=== PATIENT | female | born 1995 | race Caucasian/White ===

== ENCOUNTER 2018-07-09 00:35 | Emergency (ER) | END 2018-07-09 04:00 | disposition left against medical advice (07) | LOC: ER 00:35 | DX: R56.9 Unspecified convulsions (principal); Z53.21 Procedure and treatment not carried out due to patient leaving prior to being seen by health care provider ==

== ENCOUNTER 2019-05-24 19:48 | Emergency (ER) | payer OTHER ==
--- NOTE | 2019-05-24 21:22 | RADIOLOGY REPORT (SQ) ---
EXAM DESCRIPTION: Left wrist [facility]Lex: XR WRIST 3 OR MORE VIEWS Views: 3 CLINICAL HISTORY: 23 years Female, bone tenderness, plate in wrist COMPARISON: None. FINDINGS: Negative for acute fracture, dislocation, or radiopaque foreign body. There is an internal fixation plate along the anterior aspect of the distal radius. No hardware fracture or loosening. No lytic bone changes or acute periosteal reaction. IMPRESSION: 1. No acute findings.
[2019-05-24] MEDS ORDERED: HYDROCODONE/ACETAMINOPHEN 5-325 MG (6 TAB/ER DISP) PO PRN (22:47)
--- NOTE | 2019-05-24 22:52 | ER Document Report ---
ED General - General Chief Complaint: Wrist Pain Stated Complaint: LEFT WRIST PAIN Time Seen by Provider: 05/24/19 22:35 Primary Care Provider: THUY JESUS MD [Primary Care Provider] - Follow up as needed Notes: Patient has pain into her left wrist. She had surgery a year ago in April. Patient said surgery was done in [facility]. Patient was moving furniture and now has had increasing pain going into her hand and down her arm. She denies any new injuries other than the recent lifting of furniture. Patient says that she has had chronic issues with her wrist. She says she has chronic issues with pain with movement and weakness into her hands and wrist. She has chronic issues with intermittent numbness. She has had nerve conduction studies. She had physical therapy but says she does not like physical therapy exam because of increasing pain and feels it is hard to do physical therapy when it causes pain to do so. She has seen a neurologist. She says no I can give her an answer as to why she continues to have these problems. TRAVEL OUTSIDE OF THE [place] IN LAST 30 DAYS: No - Related Data Allergies/Adverse Reactions: No Known Allergies Allergy (Unverified 07/09/18 00:40) Past Medical History - Social History Smoking Status: Never Smoker Chew tobacco use (# tins/day): No Frequency of alcohol use: None Drug Abuse: None Family History: Reviewed & Not Pertinent Patient has suicidal ideation: No Patient has homicidal ideation: No Renal/ Medical History: Denies: Hx Peritoneal Dialysis Past Surgical History: Reports: Hx Orthopedic Surgery - Bilat Wrist Physical Exam - Vital signs Vitals: Temp Pulse Resp BP 98.2 F 84 16 132/67 H 05/24/19 20:05 05/24/19 20:05 05/24/19 20:05 05/24/19 20:05 Course - Re-evaluation Re-evalutation: 05/24/19 22:57 Patient's wrist x-ray is normal. Exam of her wrist does not have any concerning findings other than some pain over the wrist to palpation. Wrist is not abnormally swollen. She is able to oppose her thumb with all fingers. She is able to abduct and abduct all fingers. She is able to flex and extend all fingers of the hand. She is able to feel me touch all fingers in the hand. She has no obvious neuro deficit going into the hand. She has good capillary refill and good pulses. She is frustrated with the fact that she has had these chronic problems with a risk for some time. I informed her that currently her x-ray does not show any fractures. I informed her that she could have a strain in the wrist. I informed her that I do not know why she has had these chronic problems. I talked her about the need to continue with physical therapy and occupational therapy to help strengthen the wrist and hand. I did ask about nerve conduction studies which she said she is already had done and were normal. Informed her that she needs to continue follow-up with her orthopedist as well as neurologist in regards to further work-up and continue treatment for her chronic problems with her wrists. I encouraged her to avoid any heavy lifting for the next several days until she is seen by . I encouraged her to wear a wrist splint to help give support to her wrist. Patient and agree with plan and patient will be discharged home. Dictation of this chart was performed using voice recognition software; therefore, there may be some unintended grammatical errors. - Vital Signs Vital signs: Temp Pulse Resp BP Pulse Ox 98.2 F 83 16 130/70 H 99 05/24/19 22:59 05/24/19 22:59 05/24/19 22:59 05/24/19 22:59 05/24/19 22:59 Discharge - Discharge Clinical Impression: Wrist pain Qualifiers: Laterality: left Qualified Code(s): M25.532 - Pain in left wrist Condition: Good Disposition: HOME, SELF-CARE Additional Instructions: Your x-rays of your wrist do not show any concerning findings. Due to your chronic ongoing problems with the wrist I recommend that you do follow back up with your orthopedic doctor and discuss whether or not you need continued physical therapy or occupational therapy for your hand and wrist. I will give you a removable Velcro splint that you can wear on your wrist to give extra support. Please avoid heavy lifting until you are reevaluated by your doctor. Please be aware that [place] does have Tylenol (acetaminophen) in it. Please make sure you do not take more than 4000 mg of acetaminophen a day. Do not drive or care for children after you have taken this medication they will make you sleepy and sometimes impair judgment. Forms: Special Work Note, Return to Work Referrals: THUY JESUS MD [Primary Care Provider] - Follow up as needed
[2019-05-24 23:01] VITALS: BP 130/70
== END 2019-05-24 22:59 | disposition home or self-care (01) ==
LOC: ER 19:48
DX: M25.532 Pain in left wrist (principal); R53.1 Weakness; R20.0 Anesthesia of skin
CPT/HCPCS: 99283; 73110; L3908